=== PATIENT | female | born 1955 | race Hispanic/Latino ===

== ENCOUNTER 2025-01-18 09:35 | Inpatient (IN) | payer MEDICARE ==
[2025-01-18] VITALS (8 sets, daily range): BP systolic 97–116; BP diastolic 40–83; PULSE 65–114; RESP 18–20; TEMP 97.8–99.1; O2SAT 96–100
[~2025-01-18] VITALS: Ht 154.9 cm; Wt 122.0 kg
[2025-01-18] MEDS: SODIUM CHLORIDE 0.9% 1000ML 1,000 ML IV STA ×2 (10:05)
[2025-01-18] MEDS: DIGOXIN INJ 0.25 MG/ML 2 ML AMP IV ONE (10:05)
[2025-01-18 10:32] LABS: BASOPHILS % 0.4 % (0.0-1.0); EOSINOPHILS % 0.2 % (0.0-6.0); LYMPHOCYTES % 9.4 % (18.0-39.1); MONOCYTES % 7.2 % (4.4-11.3); NEUTROPHILS % 80.4 % (38.7-80.0); RED CELL DISTRIBUTION WIDTH 14.1 % (11.7-14.4)
[2025-01-18 10:47] LABS: INR 1.29
[2025-01-18 10:54] LABS: EST GLOMERULAR FILTRATION RATE 30.0 ML/MIN (>=60)
[2025-01-18] MEDS ORDERED: IOPAMIDOL 370 MG/ML 100 ML INFUS..BTL INJ ONE (11:00)
[2025-01-18 11:22] LABS: T3 UPTAKE 27.69 % (22.5-37.0)
[2025-01-18] MEDS: POTASSIUM CHLORIDE 10MEQ/100ML 100 ML IV SCH (11:38)
[2025-01-18] MEDS ORDERED: Morphine 2mg Syringe 2 MG/ML SYR IV PRN (13:45)
[2025-01-18 14:34] LABS: LEUKOCYTE ESTERASE ,URINE SMALL (NEGATIVE)
[2025-01-18 14:35] LABS: PROTEIN,URINE DIPSTICK 1+ (NEGATIVE); URINE UROBILINOGEN 4.0 mg/dL (0.2 - 1)
[2025-01-18 14:45] LABS: EPITHELIAL CELLS,URINE MODERATE /LPF
[2025-01-18] MEDS ORDERED: ELIQUIS5 MG PO (15:02)
[2025-01-18] MEDS ORDERED: AMLODIPINE BESYL5 MG PO (15:02)
[2025-01-18] MEDS ORDERED: METOPROLOL5 MG/5 M1 PO (15:05)
[2025-01-18] MEDS ORDERED: METHIMAZOLE5 MG (15:06)
[2025-01-18] MEDS ORDERED: LOSARTAN POTASS25 MG PO (15:07)
[2025-01-18] MEDS: POTASSIUM CHLORIDE 20 MEQ TAB CR PO ONE (16:13)
[2025-01-18] MEDS: SODIUM CHLORIDE 0.9% 500ML 500 ML ONE (16:18)
[2025-01-18] MEDS: KCL 40MEQ/0.9% SOD CHL 1,000 ML IV ONE (16:24)
[2025-01-18] MEDS: LACTATED RINGER'S 1,000 ML INJ SCH (17:41)
[2025-01-18] MEDS: POTASSIUM CHLORIDE 20MEQ/100ML 100 ML IV ONE (17:41)
[2025-01-18] MEDS ORDERED: LOSARTAN-HCTZ1 EAC1 (18:43)
[2025-01-18] MEDS ORDERED: DOCUSATE SODIUM 100 MG CAP PO PRN (23:30)
[2025-01-18] MEDS ORDERED: DIPHENHYDRAMINE HCL 25 MG CAP PO PRN (23:30)
[2025-01-18] MEDS ORDERED: DEXTROSE 50% SYRINGE 50 ML IV PRN (23:30)
[2025-01-18] MEDS ORDERED: ALBUTEROL/IPRATROPIUM 3 ML NEB NEB PRN (23:30)
[2025-01-18] MEDS ORDERED: SIMETHICONE 80 MG CHEW PO PRN (23:30)
[2025-01-18] MEDS ORDERED: POTASSIUM CHLORIDE 20 MEQ TAB CR PO PRN (23:30)
[2025-01-18] MEDS ORDERED: BENZONATATE 100 MG CAP PO PRN (23:30)
[2025-01-18] MEDS ORDERED: ACETAMINOPHEN 325 MG TAB PO PRN (23:30)
[2025-01-18] MEDS ORDERED: HYDRALAZINE HCL 20 MG/ML VIAL IV PRN (23:30)
[2025-01-19] VITALS (7 sets, daily range): BP systolic 95–112; BP diastolic 56–83; PULSE 84–89; RESP 17–18; TEMP 97.2–98; O2SAT 92–100
[2025-01-19] MEDS: LACTATED RINGER'S 1,000 ML INJ ONE (05:47)
[2025-01-19 06:15] LABS: BASOPHILS % 0.5 % (0.0-1.0); EOSINOPHILS % 0.8 % (0.0-6.0); LYMPHOCYTES % 12.1 % (18.0-39.1); MONOCYTES % 6.9 % (4.4-11.3); NEUTROPHILS % 73.8 % (38.7-80.0); RED CELL DISTRIBUTION WIDTH 14.5 % (11.7-14.4)
[2025-01-19 06:43] LABS: CHOL/HDL RATIO 17.3 (3.0-3.6); EST GLOMERULAR FILTRATION RATE 21.0 ML/MIN (>=60); LDL CHOLESTEROL 148.0 MG/DL (60-130)
[2025-01-19 07:13] LABS: BAND NEUTROPHILS % (MANUAL) 2 %; LYMPHOCYTES % (MANUAL) 14 % (19-48); MONOCYTES % (MANUAL) 6 % (3.4-9.0); NEUTROPHILS % (MANUAL) 78 % (40-74); PLATELET ESTIMATE ADEQUATE; PLATELET MORPHOLOGY COMMENT NORMAL; RBC MORPHOLOGY COMMENT NORMAL
[2025-01-19] MEDS: PANTOPRAZOLE SOD 40 MG TABEC PO SCH (07:30)
[2025-01-19] MEDS: METHIMAZOLE 5 MG TAB PO SCH (08:48)
[2025-01-19] MEDS: MIDODRINE HCL 5 MG TABLET PO SCH (12:35)
[2025-01-19 17:02] LABS: EST GLOMERULAR FILTRATION RATE 24.0 ML/MIN (>=60)
[2025-01-19] MEDS: METOPROLOL TARTRATE 25 MG TAB PO SCH (17:20)
[2025-01-19] MEDS: ENOXAPARIN 30 MG/0.3 ML SYR SC SCH (17:20)
[2025-01-20] VITALS (8 sets, daily range): BP systolic 97–123; BP diastolic 50–94; PULSE 79–121; RESP 17–20; TEMP 97.8–98.7; O2SAT 98–100
[2025-01-20 05:37] LABS: BASOPHILS % 0.5 % (0.0-1.0); EOSINOPHILS % 0.9 % (0.0-6.0); LYMPHOCYTES % 15.1 % (18.0-39.1); MONOCYTES % 6.3 % (4.4-11.3); NEUTROPHILS % 73.1 % (38.7-80.0); RED CELL DISTRIBUTION WIDTH 14.6 % (11.7-14.4)
[2025-01-20 06:17] LABS: EST GLOMERULAR FILTRATION RATE 29.0 ML/MIN (>=60)
[2025-01-20] MEDS: POTASSIUM CHLORIDE 20MEQ/100ML 100 ML IV SCH (14:47)
[2025-01-20] MEDS: MELATONIN 5 MG TABLET PO PRN (20:30)
[2025-01-21] VITALS (13 sets, daily range): BP systolic 95–129; BP diastolic 59–77; PULSE 75–98; RESP 18–20; TEMP 97.2–98.5; O2SAT 94–100
[2025-01-21 05:52] LABS: BASOPHILS % 0.4 % (0.0-1.0); EOSINOPHILS % 0.9 % (0.0-6.0); LYMPHOCYTES % 15.4 % (18.0-39.1); MONOCYTES % 6.4 % (4.4-11.3); NEUTROPHILS % 74.3 % (38.7-80.0); RED CELL DISTRIBUTION WIDTH 14.5 % (11.7-14.4)
[2025-01-21 06:25] LABS: EST GLOMERULAR FILTRATION RATE 45.0 ML/MIN (>=60)
[2025-01-21] MEDS: LACTATED RINGER'S 1,000 ML IV ONE (14:59)
[2025-01-21] MEDS ORDERED: LIDOCAINE HCL 2% LOCAL INJ 5 ML SDV VIAL INJ ONE (16:10)
[2025-01-21] MEDS ORDERED: FENTANYL CITRATE/PF 100MCG/2 ML INJ ONE (16:10)
[2025-01-21] MEDS ORDERED: ROCURONIUM BROMIDE 1 ML IV ONE (16:10)
[2025-01-21] MEDS ORDERED: SUCCINYLCHOLINE CHLORIDE 20 MG/ML 10ML VIAL ONE (16:10)
[2025-01-21] MEDS ORDERED: PROPOFOL IV EMULSION 10 MG/ML 20 ML VIAL ONE (16:11)
[2025-01-21] MEDS ORDERED: GLUCAGON FOR INJ 1 MG VIAL ONE (16:36)
[2025-01-21] MEDS ORDERED: HYOSCYAMINE SULFATE 0.5 MG/ML INJ ONE ×2 (16:52→16:53)
[2025-01-21] MEDS ORDERED: METOPROLOL TARTRATE INJ 1 MG/ML VIAL ONE (16:54)
[2025-01-21] MEDS ORDERED: SUGAMMADEX SODIUM 200 MG/2 ML VIAL IV ONE (17:02)
[2025-01-21] MEDS ORDERED: METOCLOPRAMIDE HCL 10 MG/2ML VIAL ONE (17:08)
[2025-01-22] VITALS (22 sets, daily range): BP systolic 96–155; BP diastolic 55–100; PULSE 25–98; RESP 10–20; TEMP 96.7–98.2; O2SAT 92–100
[2025-01-22 06:54] LABS: BASOPHILS % 0.3 % (0.0-1.0); EOSINOPHILS % 0.2 % (0.0-6.0); LYMPHOCYTES % 12.5 % (18.0-39.1); MONOCYTES % 3.8 % (4.4-11.3); NEUTROPHILS % 80.6 % (38.7-80.0); RED CELL DISTRIBUTION WIDTH 14.5 % (11.7-14.4)
[2025-01-22 07:03] LABS: EST GLOMERULAR FILTRATION RATE 37.0 ML/MIN (>=60)
[2025-01-22] MEDS ORDERED: FENTANYL CITRATE/PF 100MCG/2 ML INJ ONE (07:49)
[2025-01-22] MEDS ORDERED: LIDOCAINE HCL 2% LOCAL INJ 5 ML SDV VIAL INJ ONE ×2 (07:49→09:52)
[2025-01-22] MEDS ORDERED: ROCURONIUM BROMIDE 1 ML IV ONE ×3 (07:49→09:53)
[2025-01-22] MEDS ORDERED: SUCCINYLCHOLINE CHLORIDE 20 MG/ML 10ML VIAL ONE (07:49)
[2025-01-22] MEDS ORDERED: PROPOFOL IV EMULSION 10 MG/ML 20 ML VIAL ONE (07:51)
[2025-01-22] MEDS ORDERED: KETOROLAC TROMETHAMINE 30 MG/ML VIAL ONE (08:34)
[2025-01-22] MEDS ORDERED: DEXAMETHASONE SOD PHOS INJ 4 MG/ML SDV ONE (08:34)
[2025-01-22] MEDS ORDERED: METOCLOPRAMIDE HCL 10 MG/2ML VIAL ONE (08:34)
[2025-01-22] MEDS ORDERED: ONDANSETRON HCL INJ 2MG/ML 2ML 2 MG/ML VIAL ONE (08:34)
[2025-01-22] MEDS ORDERED: Morphine 10mg syringe 10 MG/ML INJ ONE (08:57)
[2025-01-22] MEDS ORDERED: LABETALOL HCL 20 ML ONE (08:58)
[2025-01-22] MEDS ORDERED: SUGAMMADEX SODIUM 200 MG/2 ML VIAL IV ONE ×2 (09:53→11:52)
[2025-01-22] MEDS ORDERED: ONDANSETRON HCL INJ 2MG/ML 2ML 2 MG/ML VIAL IV PRN (12:30)
[2025-01-22] MEDS: HYDROMORPHONE 1MG/1ML INJ IV PRN (13:17)
[2025-01-22] MEDS: SODIUM CHLORIDE 0.9% 1000ML 1,000 ML IV SCH (13:19)
[2025-01-22] MEDS: SODIUM CHLORIDE 0.9% 250ML IRRIG IR SCH (13:33)
[2025-01-22] MEDS: D5NS/KCL 20MEQ 1,000 ML IV SCH (15:17)
[2025-01-22] MEDS: ONDANSETRON HCL INJ 2MG/ML 2ML 2 MG/ML VIAL IV PRN (17:29)
[2025-01-23] VITALS (23 sets, daily range): BP systolic 101–144; BP diastolic 48–103; PULSE 85–113; RESP 16–26; TEMP 97.9–98.8; O2SAT 95–100
[2025-01-23 09:42] LABS: BASOPHILS % 0.3 % (0.0-1.0); EOSINOPHILS % 0.2 % (0.0-6.0); LYMPHOCYTES % 9.5 % (18.0-39.1); MONOCYTES % 5.4 % (4.4-11.3); NEUTROPHILS % 82.0 % (38.7-80.0); RED CELL DISTRIBUTION WIDTH 14.7 % (11.7-14.4)
[2025-01-23 10:12] LABS: EST GLOMERULAR FILTRATION RATE 60.0 ML/MIN (>=60)
[2025-01-23] MEDS: ACETAMINOPHEN 1000 MG/100 ML IV PRN (11:55)
[2025-01-24] VITALS (17 sets, daily range): BP systolic 106–133; BP diastolic 54–103; PULSE 73–109; RESP 8–21; TEMP 97.7–98.3; O2SAT 97–100
[2025-01-24 07:16] LABS: BASOPHILS % 0.4 % (0.0-1.0); EOSINOPHILS % 0.4 % (0.0-6.0); LYMPHOCYTES % 12.6 % (18.0-39.1); MONOCYTES % 6.1 % (4.4-11.3); NEUTROPHILS % 75.6 % (38.7-80.0); RED CELL DISTRIBUTION WIDTH 14.6 % (11.7-14.4)
[2025-01-24 07:44] LABS: EST GLOMERULAR FILTRATION RATE 81.0 ML/MIN (>=60)
[2025-01-24] MEDS: FUROSEMIDE INJ 10 MG/ML 4 ML VIAL IV ONE ×2 (08:54→17:05)
[2025-01-24] MEDS ORDERED: HYDROCODONE/APAP 7.5MG-325MG 1 EA TAB PO PRN (09:00)
[2025-01-24] MEDS: METOPROLOL TARTRATE 50 MG TAB PO SCH (10:50)
[2025-01-24] MEDS: AMLODIPINE BESYLATE 5 MG TAB PO SCH (10:50)
[2025-01-24] MEDS: LOSARTAN POTASSIUM 25 MG TAB PO SCH (10:51)
[2025-01-24] MEDS ORDERED: MELATONIN 5 MG TABLET PO PRN (16:45)
[2025-01-24] MEDS ORDERED: SIMETHICONE 80 MG CHEW PO PRN (16:45)
[2025-01-24] MEDS ORDERED: ALBUTEROL/IPRATROPIUM 3 ML NEB NEB PRN (16:45)
[2025-01-24] MEDS ORDERED: DIPHENHYDRAMINE HCL 25 MG CAP PO PRN (16:45)
[2025-01-24] MEDS ORDERED: DOCUSATE SODIUM 100 MG CAP PO PRN (16:45)
[2025-01-24] MEDS ORDERED: BENZONATATE 100 MG CAP PO PRN (16:45)
[2025-01-24] MEDS ORDERED: DEXTROSE 50% SYRINGE 50 ML IV PRN (16:45)
[2025-01-24] MEDS ORDERED: HYDRALAZINE HCL 20 MG/ML VIAL IV PRN (16:45)
[2025-01-24] MEDS ORDERED: ACETAMINOPHEN 325 MG TAB PO PRN (16:45)
[2025-01-24] MEDS: ROPIVACAINE/EPI/CLONIDINE/KET 50 ML SYRINGE INJ ONE (20:37)
[2025-01-24] MEDS: SODIUM CHLORIDE 0.9% 250ML 250 ML ONE (22:46)
[2025-01-25] VITALS (9 sets, daily range): BP systolic 103–122; BP diastolic 50–76; PULSE 51–89; RESP 16–20; TEMP 97.5–98.2; O2SAT 94–100
[2025-01-25 06:01] LABS: BASOPHILS % 0.3 % (0.0-1.0); EOSINOPHILS % 1.1 % (0.0-6.0); LYMPHOCYTES % 18.2 % (18.0-39.1); MONOCYTES % 6.4 % (4.4-11.3); NEUTROPHILS % 69.7 % (38.7-80.0); RED CELL DISTRIBUTION WIDTH 14.6 % (11.7-14.4)
[2025-01-25 06:20] LABS: EST GLOMERULAR FILTRATION RATE 88.0 ML/MIN (>=60)
[2025-01-25] MEDS: POTASSIUM CHLORIDE 20 MEQ TAB CR PO ONE (09:34)
[2025-01-25] MEDS: FUROSEMIDE INJ 10 MG/ML 4 ML VIAL IV ONE (09:35)
[2025-01-25 16:03] LABS: EST GLOMERULAR FILTRATION RATE 84.0 ML/MIN (>=60)
[2025-01-26] VITALS (8 sets, daily range): BP systolic 103–123; BP diastolic 48–77; PULSE 76–89; RESP 18–20; TEMP 97.5–98.5; O2SAT 97–100
[2025-01-26 06:50] LABS: BASOPHILS % 0.6 % (0.0-1.0); EOSINOPHILS % 1.3 % (0.0-6.0); LYMPHOCYTES % 19.8 % (18.0-39.1); MONOCYTES % 6.3 % (4.4-11.3); NEUTROPHILS % 68.0 % (38.7-80.0); RED CELL DISTRIBUTION WIDTH 14.4 % (11.7-14.4)
[2025-01-26 07:16] LABS: EST GLOMERULAR FILTRATION RATE 85.0 ML/MIN (>=60)
[2025-01-26] MEDS: FUROSEMIDE INJ 10 MG/ML 4 ML VIAL IV SCH (17:12)
[2025-01-26] MEDS: POTASSIUM CHLORIDE 10MEQ EA PO ONE (17:13)
[2025-01-26] MEDS: POTASSIUM CHLORIDE 20 MEQ TAB CR PO PRN (22:15)
[2025-01-27 01:18] VITALS: BP 90/70; PULSE 88; RESP 18; TEMP 97.9; O2SAT 100
[2025-01-27 06:29] VITALS: PULSE 74; RESP 21; O2SAT 99
[2025-01-27 06:51] VITALS: BP 119/58; PULSE 85; RESP 16; TEMP 97; O2SAT 99
[2025-01-27 07:25] LABS: BASOPHILS % 0.8 % (0.0-1.0); EOSINOPHILS % 1.3 % (0.0-6.0); LYMPHOCYTES % 24.0 % (18.0-39.1); MONOCYTES % 5.8 % (4.4-11.3); NEUTROPHILS % 65.3 % (38.7-80.0); RED CELL DISTRIBUTION WIDTH 14.6 % (11.7-14.4)
[2025-01-27 07:54] LABS: EST GLOMERULAR FILTRATION RATE 87.0 ML/MIN (>=60)
[2025-01-27 08:05] VITALS: BP 106/60; PULSE 68; RESP 18; TEMP 98.2; O2SAT 97
[2025-01-27 08:32] VITALS: BP 106/60; PULSE 68; RESP 18; TEMP 98.2; O2SAT 97
[2025-01-27] MEDS: FUROSEMIDE 40 MG TAB PO ONE (09:11)
[2025-01-27 11:43] VITALS: BP 114/73; PULSE 85; RESP 20; TEMP 97.9; O2SAT 100
[2025-01-27] MEDS ORDERED: ELIQUIS5 MG PO (14:58)
== END 2025-01-27 16:15 | disposition home or self-care (01) | DRG 408 ==
LOC: ER 09:42 → ERHOLD 13:35 → MED/SURG2 14:50 → ICU 01-22 13:03 → MED/SURG3 01-24 09:19
PROVIDERS: ADMIT Internal Medicine; ATTEND Internal Medicine
PROC: 0DJ68ZZ Inspection of Stomach, Via Natural or Artificial Opening Endoscopic (ICD-10-PCS; 2025-01-21)
PROC: 0FJ44ZZ Inspection of Gallbladder, Percutaneous Endoscopic Approach (ICD-10-PCS; 2025-01-22)
PROC: 0FN44ZZ Release Gallbladder, Percutaneous Endoscopic Approach (ICD-10-PCS; 2025-01-22)
PROC: 0F7 Hepatobiliary System and Pancreas, Dilation (ICD-10-PCS; 2025-01-22)
PROC: BF101ZZ Fluoroscopy of Bile Ducts using Low Osmolar Contrast (ICD-10-PCS; 2025-01-22)
PROC: 0FT40ZZ Resection of Gallbladder, Open Approach (ICD-10-PCS; principal; 2025-01-22 08:23)
PROC: 0FC90ZZ Extirpation of Matter from Common Bile Duct, Open Approach (ICD-10-PCS; 2025-01-22 08:23)
DX: K80.62 Calculus of gallbladder and bile duct with acute cholecystitis without obstruction (principal); K85.10 Biliary acute pancreatitis without necrosis or infection; C23 Malignant neoplasm of gallbladder; I50.32 Chronic diastolic (congestive) heart failure; C77.2 Secondary and unspecified malignant neoplasm of intra-abdominal lymph nodes; N17.9 Acute kidney failure, unspecified; R65.10 Systemic inflammatory response syndrome (SIRS) of non-infectious origin without acute organ dysfunction; Z68.43 Body mass index [BMI] 50.0-59.9, adult; I13.0 Hypertensive heart and chronic kidney disease with heart failure and stage 1 through stage 4 chronic kidney disease, or unspecified chronic kidney disease; N39.0 Urinary tract infection, site not specified; Z79.01 Long term (current) use of anticoagulants; N18.9 Chronic kidney disease, unspecified; E86.0 Dehydration; E87.6 Hypokalemia; E87.8 Other disorders of electrolyte and fluid balance, not elsewhere classified; I48.0 Paroxysmal atrial fibrillation; B95.1 Streptococcus, group B, as the cause of diseases classified elsewhere; Z53.31 Laparoscopic surgical procedure converted to open procedure; E03.9 Hypothyroidism, unspecified; K82.8 Other specified diseases of gallbladder; Q40.2 Other specified congenital malformations of stomach; E66.01 Morbid (severe) obesity due to excess calories; Z71.3 Dietary counseling and surveillance; G47.33 Obstructive sleep apnea (adult) (pediatric); K57.30 Diverticulosis of large intestine without perforation or abscess without bleeding; K76.0 Fatty (change of) liver, not elsewhere classified; E04.1 Nontoxic single thyroid nodule; Z79.899 Other long term (current) drug therapy
CPT/HCPCS: 36415; 43239; 43260; 70450; 71045; 71260; 72125; 73521; 74177; 74181; 74300; 76705; 80048; 80053; 80061; 81001; 82550; 82948; 83036; 83605; 83690; 83735; 83880; 84132; 84439; 84443; 84479; 84480; 84484; 85025; 85379; 85610; 85730; 87040; 87086; 87186; 88300; 88304; 88342; 93005; 93306; 93970; 94799; 99284; C1766; J0330; J1100; J1160; J1171; J1610; J1650; J1885; J1938; J1980; J2003; J2270; J2405; J2470; J2543; J2765; J3480; J7030; J7040; J7050; Q9967